=== PATIENT | male | born 1965 | race Caucasian/White ===

== ENCOUNTER 2016-08-26 20:50 | Emergency (ER) | payer OTHER ==
[2016-08-26] MEDS ORDERED: Lidocaine 1% with EPINEPHrine 1:100,000 20 ML MDV INJECT ONE (21:18)
[2016-08-26] MEDS ORDERED: Diphtheria,Pertussis(Acell),Tetanus Vaccine 0.5 ML Syringe IM ONE (21:18)
[2016-08-26] MEDS ORDERED: Ondansetron 4 MG Tab.DIS PO ONE (21:19)
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
[2016-08-26] MEDS ORDERED: Ketorolac 60 MG/2 ML SDV IM ONE (22:22)
[2016-08-26] MEDS ORDERED: Lidocaine/EPINEPHrine/Tetracaine Soln 1 ML TOP ONE (22:22)
[2016-08-26] MEDS ORDERED: Octyl 2-Cyanoacrylate 1 Tube TOP ONE (22:25)
[2016-08-27 06:06] VITALS: BP 137/81
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
== END 2016-08-26 23:08 ==
LOC: MW.ED 20:50
DX: S06.0X1A Concussion with loss of consciousness of 30 minutes or less, initial encounter (principal); S01.412A Laceration without foreign body of left cheek and temporomandibular area, initial encounter; Y04.0XXA Assault by unarmed brawl or fight, initial encounter; Z88.5 Allergy status to narcotic agent; K21.9 Gastro-esophageal reflux disease without esophagitis; F20.9 Schizophrenia, unspecified; Z79.899 Other long term (current) drug therapy; Z23 Encounter for immunization
CPT/HCPCS: 12013; 70450; 70486; 90471; 90715; 99284; A9270; J1885

== ENCOUNTER 2019-11-17 22:54 | Emergency (ER) | payer MEDICAID ==
--- NOTE | 2019-11-17 23:58 | EDM.PDOCBH ---
ED HPI GENERAL MEDICAL PROBLEM - General Chief Complaint: Behavioral/Psych Stated Complaint: SUICIDAL TENDENCIES Time Seen by Provider: 11/17/19 22:57 Source of Information: Reports: Patient, Old Records History Limitations: Reports: No Limitations - History of Present Illness INITIAL COMMENTS - FREE TEXT/NARRATIVE: 54-year-old male with past medical history of alcohol dependence presenting with complaints of feeling "weird". Patient states he has been drinking vodka all day long and was not feeling right earlier so he decided to come to the emergency department because he was not feeling like himself. He states that he is now feeling back to normal. He denies having any complaints of pain at any point. Denies taking illegal drugs, denies any desire to harm himself or others. At this point he denies any acute medical complaints and is wanting to check out of the hospital immediately. He states that his family members want to drive him to [place] to take him to a detox facility. He is requesting to be discharged as soon as he was roomed. - Related Data Allergies Allergy/AdvReac Type Severity Reaction Status Date / Time codeine Allergy Facial Verified 11/18/19 00:00 Swelling Home Meds: Home Meds . [No Known Home Meds] 11/18/19 [History] Past Medical History Gastrointestinal History: Reports: GERD Neurological History: Reports: Seizure Psychiatric History: Reports: Hallucinations, Schizophrenia Social & Family History - Family History Family Medical History: Noncontributory ED ROS GENERAL - Review of Systems Review Of Systems: See Below Constitutional: Reports: No Symptoms HEENT: Reports: No Symptoms Respiratory: Denies: Shortness of Breath Cardiovascular: Denies: Chest Pain Endocrine: Reports: No Symptoms GI/Abdominal: Denies: Abdominal Pain, Nausea, Vomiting : Denies: Flank Pain Musculoskeletal: Denies: Back Pain Skin: Reports: No Symptoms Neurological: Denies: Headache Psychiatric: Denies: Agitation, Anxiety, Depression, Homicidal Ideation, Suicidal Ideation ED EXAM, BEHAVIORAL HEALTH - Physical Exam Exam: See Below Text/Narrative:: Vital signs reviewed. Nursing notes reviewed. Constitutional: Awake, alert, non-distressed. Head: Normocephalic, atraumatic. Eyes: EOMI, conjunctiva normal, no discharge, no scleral icterus. Ears, Nose, Throat: External ears and nose normal, moist oral mucosa. Cardiovascular: 2+ radial pulse, capillary refill less than 2 seconds. RRR, no MRG Pulmonary: normal work of breathing, no accessory muscle use. CTABL Abdomen/GI: Nondistended Musculoskeletal: No deformities. Integumentary: Appropriate color for ethnicity, warm, dry, no pallor or jaundice, no rash. Neurologic: Alert, answering questions appropriately, slightly slurred speech, no facial droop, moving all extremities well. Normal gait. Appears steady on his feet. Psychiatric: Appropriate mood and affect, normal thought process. No suicidal or homicidal ideations, no hallucinations. Exam Limited By: No Limitations COURSE, BEHAVIORAL HEALTH COMP - Course Vital Signs: Last Vital Signs Temp 35.9 C L 11/18/19 00:01 Pulse 98 11/18/19 00:01 Resp 18 11/18/19 00:01 BP 159/97 H 11/18/19 00:01 Pulse Ox 95 11/18/19 00:01 Patient comes into the ER because he was "not feeling right earlier". He states he has been drinking vodka all day long and thinks he is intoxicated. At present he is feeling back to normal and has no medical complaints. He is alert and oriented to person, place, time, and event. He is able to walk without any assistance and appears steady on his feet. At the moment he has no medical complaints and does not want any further evaluation. He states that his family members are coming to pick him up to take him to a detox facility and [place]. He appears to have decisional capacity and has no complaints or suggestion of an acute medical emergency. Appears to have very mild alcohol intoxication. We will check his vital signs and let him be discharged from the emergency department to go to detox with his family members as he wishes. Departure - Departure Time of Disposition: 23:57 Disposition: Home, Self-Care 01 Condition: Good Clinical Impression: Alcohol intoxication Qualifiers: Complication of substance-induced condition: uncomplicated Qualified Code(s): F10.920 - Alcohol use, unspecified with intoxication, uncomplicated - Discharge Information *PRESCRIPTION DRUG MONITORING PROGRAM REVIEWED*: Not Applicable *COPY OF PRESCRIPTION DRUG MONITORING REPORT IN PATIENT RADHA: Not Applicable Instructions: Binge-Drinking Information, Adult Referrals: [facility] [Provider Group] - 1 Week (For alcohol cessation counseling in for follow-up of any complaints.) Forms: ED Department Discharge Additional Instructions: Thank you for choosing the [facility] emergency department in [place] for your medical needs today. It was a pleasure caring for you. You were seen in the emergency department for call intoxication. At this point we are going to let you go to detox with your family. I would like for you to follow-up with a primary doctor in the next week or so for reevaluation and for alcohol cessation counseling. Please return the emergency department immediately if your symptoms worsen or if you feel worse. The following information is given to patients seen in the emergency department who are being discharged. This information is to outline your options for follow-up care. We provide all patients seen in our emergency department with a follow-up referral. The need for follow-up, as well as the timing and circumstances, are variable depending upon the specifics of your emergency department visit. If you don't have a primary care physician on staff, we will provide you with a referral. We always advise you to contact your personal physician following an emergency department visit to inform them of the circumstance of the visit and for follow-up with them and/or the need for any referrals to a consulting specialist. The emergency department will also refer you to a specialist when appropriate. This referral assures that you have the opportunity for follow-up care with a specialist. All of these measure are taken in an effort to provide you with optimal care, which includes your follow-up. Under all circumstances we always encourage you to contact your private physician who remains a resource for coordinating your care. When calling for follow-up care, please make the office aware that this follow-up is from your recent emergency room visit. If for any reason you are refused follow-up, please contact the [facility] Emergency Department at and asked to speak to the emergency department charge nurse. If you do not have a primary care physician that is caring for you, you can con tact these clinics below to set up an appointment to establish care: [facility] - Primary Care [address] [place] [id number] [facility] [address] [place] [address] Sepsis Event Note (ED) - Focused Exam Vital Signs: Vital Signs Temp Pulse Resp BP Pulse Ox 11/18/19 00:01 35.9 C L 98 18 159/97 H 95
[2019-11-18 00:08] VITALS: BP 159/97; PULSE 98
== END 2019-11-18 00:10 | disposition home or self-care (01) ==
LOC: MW.ED 22:54
DX: F10.120 Alcohol abuse with intoxication, uncomplicated (principal); R47.81 Slurred speech; Z88.5 Allergy status to narcotic agent
CPT/HCPCS: 99282; 99283

== ENCOUNTER 2020-01-20 21:02 | Emergency (ER) | payer MEDICAID ==
[2020-01-20] MEDS ORDERED: Sodium Chloride 0.9% 1,000 ML IV ONE (21:18)
[2020-01-20] MEDS ORDERED: Sodium Chloride 0.9% 2.5 ML Syringe FLUSH PRN (21:18)
[2020-01-20] MEDS ORDERED: Pantoprazole 40 MG in Sodium Chloride 0.9% 10 ML IV ONE (21:18)
[2020-01-20] MEDS ORDERED: Ondansetron 4 MG/2 ML SDV IVPUSH ONE (21:18)
[2020-01-20] MEDS ORDERED: Sodium Chloride 0.9% 10 ML Syringe FLUSH PRN (21:18)
[2020-01-20 21:43] LABS: BLOOD UREA NITROGEN,BUN 13 mg/dL (7.0-18.0); CARBON DIOXIDE,CO2 21.7 mmol/L (21.0-32.0); CHLORIDE,CL 104 mmol/L (98-107); GLUCOSE RANDOM 105 mg/dL (74-106); LIPASE 368 U/L (73-393); POTASSIUM,K 3.6 mmol/L (3.5-5.1); SODIUM,NA 140 mmol/L (136-148)
--- NOTE | 2020-01-20 22:05 | CR ---
HISTORY: Chest pain COMPARISON: None available FINDINGS: A portable erect AP lordotic view of the chest was obtained at 21 40 hours. The lungs are clear. No focal or diffuse infiltrates are present. The heart is top-normal in size. The mediastinum is normal in appearance. The osseous structures are normal in appearance for the patient`s age. IMPRESSION: Normal portable chest single view. Dictated by Donald Mendez MD @ Jan 20 2020 10:02PM Signed by Dr. Donald Mendez @ Jan 20 2020 10:03PM
[2020-01-20] MEDS ORDERED: Iopamidol 755 Mg/ML 100 ML Bottle IVPUSH STA (22:30)
--- NOTE | 2020-01-20 22:50 | CT ---
INDICATION: Chest pain COMPARISON: None available TECHNIQUE: CT angiography of the chest was performed with the uneventful intravenous administration of 100 cc of Isovue 370 while 3 mm thick axial sections were obtained from above the apices of the lungs through the superior abdomen. Please note that all CT scans at this facility use dose modulation, iterative reconstruction, and/or weight-based dosing when appropriate to reduce radiation dose to as low as reasonably achievable. FINDINGS: The thoracic aorta is normal in caliber with no sign of dilatation or dissection. There is no sign of periaortic hematoma. The lungs are clear with no sign of infiltrate or mass. There is no sign of pulmonary embolism, with normal enhancement and branching of the pulmonary arteries. There is no sign of mediastinal or hilar mass or adenopathy. There is no sign of supraclavicular or axillary mass or adenopathy. The heart is normal in appearance for the patient`s age, as are the ascending great vessels. The visualized superior liver, spleen, pancreas, kidneys, and adrenals are normal in appearance. The osseous structures are normal in appearance for the patient`s age. IMPRESSION: Normal CT angiogram of the thoracic aorta. Normal CT of the chest with contrast. Please note that all CT scans at this facility use dose modulation, iterative reconstruction, and/or weight-based dosing when appropriate to reduce radiation dose to as low as reasonably achievable. Dictated by Donald Mendez MD @ Jan 20 2020 10:42PM Signed by Dr. Donald Mendez @ Jan 20 2020 10:49PM
--- NOTE | 2020-01-20 23:01 | CT ---
INDICATION: Abdominal pain COMPARISON: None available TECHNIQUE: CT angiography of the abdomen and pelvis was performed with the uneventful intravenous administration of Isovue 370 as part of the accompanying CTA of the chest while 1 mm thick axial sections were obtained from the lung bases through the pubic symphysis. Please note that all CT scans at this facility use dose modulation, iterative reconstruction, and/or weight-based dosing when appropriate to reduce radiation dose to as low as reasonably achievable. FINDINGS: : In the abdomen, the liver, spleen, and adrenals are normal in appearance. There is minimal inflammatory stranding around the pancreatic head and the pancreatic body at the junction with the pancreatic tail, suggesting mild pancreatitis. There is no sign of swelling of the pancreas. There is no sign of pseudocyst, phlegmon, infarction, or hemorrhage. Recommend correlation with the laboratory exam. The kidneys are normal in appearance. The gallbladder is normal in appearance. The abdominal aorta is normal in caliber with no sign of dilatation. The celiac axis, SMA, solitary bilateral renal arteries, and ABELARDO are widely patent. There is no sign of retroperitoneal mass or adenopathy. The stomach, loops of small bowel, and colon in the abdomen are normal in appearance. In the pelvis, the appendix is normal in appearance with no sign of inflammatory process. The loops of small bowel and colon in the pelvis are normal in appearance. The prostate is normal in appearance. The urinary bladder is normal in appearance. There is no sign of pelvic or inguinal mass or adenopathy. There are mild bilateral direct fat containing inguinal hernias. There is no sign of free fluid or free air in the abdomen or pelvis. The lung bases are clear. There is prominent disc degenerative disease at L1-2 with prominent sclerosis of the vertebral bodies adjacent to the disc space. There is moderate diffuse disc bulging with posterior osteophytic ridging probably results in mild spinal stenosis at this level. There is moderate L2-3 disc degenerative disease. IMPRESSION: Normal CT angiogram of the abdominal aorta. CT of the abdomen shows possible mild pancreatitis involving the pancreatic head and the pancreatic body at the junction with the pancreatic tail. Recommend correlation with the laboratory examination. CT of the pelvis shows small bilateral fat containing inguinal hernias. Prominent disc degenerative disease at L1-2 with moderate diffuse disc bulging and posterior osteophytic ridging which probably results in spinal stenosis. Please note that all CT scans at this facility use dose modulation, iterative reconstruction, and/or weight-based dosing when appropriate to reduce radiation dose to as low as reasonably achievable. Dictated by Donald Mendez MD @ Jan 20 2020 10:42PM Signed by Dr. Donald Mendez @ Jan 20 2020 11:00PM
--- NOTE | 2020-01-20 23:36 | EDM.PDOC ---
ED HPI GENERAL MEDICAL PROBLEM - General Chief Complaint: Chest Pain Stated Complaint: CHEST PAINS Time Seen by Provider: 01/20/20 21:04 - History of Present Illness INITIAL COMMENTS - FREE TEXT/NARRATIVE: HISTORY AND PHYSICAL: History of present illness: This is a 54-year-old gentleman who presents ER today complaining of midepigastric left upper and right upper quadrant abdominal discomfort since yesterday evening that has been intermittent in nature. Patient reports that the pain is not in his chest but in his mid epigastric area underneath his xiphoid process. Patient denies any fevers, shakes, chills, vomiting, dysuria, frequency, urgency. Patient reports that he has had 4-5 loose bowel movements over the last 24 hours. Patient reports he has noticed blood in his stool. Patient reports occasional shortness of breath and diaphoresis with the pain in his mid epigastric region. Patient reports that the pain is not exertional. Patient reports that the pain increases with drinking alcohol and he was drinkin g alcohol today. Patient reports that he drinks alcohol daily. Patient denies any history of pancreatitis, diabetes, liver, lung, kidney problems. Patient denies any prior abdominal or chest surgeries. Review of systems: As per history of present illness and below otherwise all systems reviewed and negative. Past medical history: As per history of present illness and as reviewed below otherwise noncontributory. Surgical history: As per history of present illness and as reviewed below otherwise noncontributory. Social history: No reported history of drug or alcohol abuse. Family history: As per history of present illness and as reviewed below otherwise noncontributory. Physical exam: HEENT: Atraumatic, normocephalic, pupils reactive, negative for conjunctival pallor or scleral icterus, mucous membranes moist, throat clear, neck supple, nontender, trachea midline. Lungs: Clear to auscultation, breath sounds equal bilaterally, chest nontender. Heart: S1S2, regular, negative for clicks, rubs, or JVD. Abd: Soft, nondistended, no rebound/guarding, no psoas or obturator signs, no tenderness at Mcberney's point, no Grullon's sign. Pt does not present with an exam that would be consistent with an acute surgical abdomen at this time. Tenderness to palpation midepigastric greater than left upper quadrant greater than right upper quadrant. Pelvis: Stable nontender. Genitourinary: Deferred. Rectal: Heme-negative brown stool Extremities: Atraumatic, negative for cords or calf pain. Neurovascular unremarkable. Neuro: Awake, alert, oriented. Cranial nerves II through XII unremarkable. Cerebellum unremarkable. Motor and sensory unremarkable throughout. Exam nonfocal. Diagnostics: EK Normal sinus rhythm heart rate of 83 with poor baseline and motion artifact Nonspecific ST-T wave abnormalities Normal axis No evidence of ST elevation [place] As interpreted by ER physician: Radha EKG #2: Normal sinus rhythm heart rate of [address]-T wave abnormalities Normal axis No evidence of ST elevation [place] As interpreted by ER physician: Radha Chest Xray: Normal cardiac silhouette No infiltrates or effusions identified. No PTX No evidence of acute bony fracture. As interpreted by ER MD: Radha CTA of abdomen chest pelvis reveals no acute pathology and aorta. Patient does have inflammation around his pancreas consistent with pancreatitis. Assessment and plan: Is a 54-year-old gentleman who presented to the ER today with abdominal pain. During my evaluation, the patient insisted that he has not had any chest pain and that the pain has been in his abdomen. When asked to point where the pain hurts the most, the patient consistently points towards his mid epigastric left upper and right upper quadrant region. Patient's ER work-up has been significant for pancreatitis identified on CT scan. Patient's lipase is top normal. Patient's EKG #1 and #2 both reveal normal sinus rhythm with nonspecific ST-T wave abnormalities. The initial EKG did reveal poor baseline. Definitive disposition and diagnosis as appropriate pending reevaluation and review of above. Chest Pain Pain Score (Numeric/FACES): 6 - Related Data Allergies Allergy/AdvReac Type Severity Reaction Status Date / Time codeine Allergy Facial Verified 11/18/19 00:00 Swelling Home Meds: Home Meds . [No Known Home Meds] 11/18/19 [History] Past Medical History Cardiovascular History: Reports: High Cholesterol Gastrointestinal History: Reports: GERD Neurological History: Reports: Seizure Psychiatric History: Reports: Hallucinations, Schizophrenia - Infectious Disease History Infectious Disease History: Reports: None Social & Family History - Family History Family Medical History: Noncontributory - Caffeine Use Caffeine Use: Reports: None ED ROS GENERAL - Review of Systems Review Of Systems: See Below ED EXAM, GENERAL - Physical Exam Exam: See Below Course - Vital Signs Last Recorded V/S: Last Vital Signs Temp 96.8 F L 01/20/20 21:08 Pulse 77 01/20/20 23:10 Resp 18 01/20/20 23:10 BP 121/76 01/20/20 23:10 Pulse Ox 94 L 01/20/20 23:10 - Orders/Labs/Meds Orders: Active Orders 24 hr Category Date Time Status EKG 12 Lead [EKG Documentation Completion] [RC] STAT Care 01/20/20 21:22 Active EKG Documentation Completion [RC] STAT Care 01/20/20 23:30 Active TROPONIN I [CHEM] Stat Lab 01/20/20 23:38 Received Sodium Chloride 0.9% [Saline Flush] Med 01/20/20 21:18 Active 10 ml FLUSH ASDIRECTED PRN Sodium Chloride 0.9% [Saline Flush] Med 01/20/20 21:18 Active 2.5 ml FLUSH ASDIRECTED PRN Saline Lock Insert [OM.PC] Stat Oth 01/20/20 21:19 Ordered Medication Orders Sodium Chloride (Saline Flush) 10 ml FLUSH ASDIRECTED PRN PRN Reason: Keep Vein Open Sodium Chloride (Saline Flush) 2.5 ml FLUSH ASDIRECTED PRN PRN Reason: Keep Vein Open Labs: Laboratory Tests 01/20/20 01/20/20 01/20/20 Range/Units 21:08 21:08 21:08 WBC 12.73 H (4.0-11.0) K/uL RBC 5.17 (4.50-5.90) M/uL Hgb 17.3 H (13.0-17.0) g/dL Hct 48.4 (38.0-50.0) % MCV 93.6 (80.0-98.0) fL MCH 33.5 H (27.0-32.0) pg MCHC 35.7 (31.0-37.0) g/dL RDW Std Deviation 47.2 (28.0-62.0) fl RDW Coeff of Dolly 14 (11.0-15.0) % Plt Count 273 (150-400) K/uL MPV 9.00 (7.40-12.00) fL Neut % (Auto) 72.1 (48.0-80.0) % Lymph % (Auto) 21.3 (16.0-40.0) % [place] % (Auto) 4.9 (0.0-15.0) % Eos % (Auto) 1.5 (0.0-7.0) % Baso % (Auto) 0.2 (0.0-1.5) % Neut # (Auto) 9.2 H (1.4-5.7) K/uL Lymph # (Auto) 2.7 H (0.6-2.4) K/uL [place] # (Auto) 0.6 (0.0-0.8) K/uL Eos # (Auto) 0.2 (0.0-0.7) K/uL Baso # (Auto) 0.0 (0.0-0.1) K/uL Nucleated RBC % 0.0 /100WBC Nucleated RBCs # 0 K/uL INR 1.04 D-Dimer, Quantitative 0.71 H (0.0-0.50) mg/L FEU Sodium 140 (136-148) mmol/L Potassium 3.6 (3.5-5.1) mmol/L Chloride 104 (98-107) mmol/L Carbon Dioxide 21.7 (21.0-32.0) mmol/L BUN 13 (7.0-18.0) mg/dL Creatinine 0.9 (0.8-1.3) mg/dL Est Cr Clr Drug Dosing TNP Estimated GFR (MDRD) > 60.0 ml/min Glucose 105 (74-106) mg/dL Calcium 8.5 (8.5-10.1) mg/dL Total Bilirubin 0.4 (0.2-1.0) mg/dL AST 48 H (15-37) IU/L ALT 66 H (14-63) IU/L Alkaline Phosphatase 83 (46-116) U/L Troponin I < 0.050 (0.000-0.056) ng/mL B-Natriuretic Peptide (<100) PG/ML Total Protein 7.1 (6.4-8.2) g/dL Albumin 3.8 (3.4-5.0) g/dL Globulin 3.3 (2.6-4.0) g/dL Albumin/Globulin Ratio 1.2 (0.9-1.6) Lipase 368 (73-393) U/L Urine Color Urine Appearance Urine pH (5.0-8.0) Ur Specific [place] (1.001-1.035) Urine Protein (NEGATIVE) mg/dL Urine Glucose (UA) (NEGATIVE) mg/dL Urine Ketones (NEGATIVE) mg/dL Urine Occult Blood (NEGATIVE) Urine Nitrite (NEGATIVE) Urine Bilirubin (NEGATIVE) Urine Urobilinogen (<2.0) EU/dL Ur Leukocyte Esterase (NEGATIVE) Urine RBC (0-2/HPF) Urine WBC (0-5/HPF) Ur Epithelial Cells (NONE-FEW) Urine Bacteria (NEGATIVE) Urine Mucus (NONE-MOD) Ethyl Alcohol 221 mg/dL COVID-19 (EVELYN) (NEGATIVE) 01/20/20 01/20/20 01/20/20 Range/Units 21:08 21:25 22:10 WBC (4.0-11.0) K/uL RBC (4.50-5.90) M/uL Hgb (13.0-17.0) g/dL Hct (38.0-50.0) % MCV (80.0-98.0) fL MCH (27.0-32.0) pg MCHC (31.0-37.0) g/dL RDW Std Deviation (28.0-62.0) fl RDW Coeff of Dolly (11.0-15.0) % Plt Count (150-400) K/uL MPV (7.40-12.00) fL Neut % (Auto) (48.0-80.0) % Lymph % (Auto) (16.0-40.0) % [place] % (Auto) (0.0-15.0) % Eos % (Auto) (0.0-7.0) % Baso % (Auto) (0.0-1.5) % Neut # (Auto) (1.4-5.7) K/uL Lymph # (Auto) (0.6-2.4) K/uL [place] # (Auto) (0.0-0.8) K/uL Eos # (Auto) (0.0-0.7) K/uL Baso # (Auto) (0.0-0.1) K/uL Nucleated RBC % /100WBC Nucleated RBCs # K/uL INR D-Dimer, Quantitative (0.0-0.50) mg/L FEU Sodium (136-148) mmol/L Potassium (3.5-5.1) mmol/L Chloride (98-107) mmol/L Carbon Dioxide (21.0-32.0) mmol/L BUN (7.0-18.0) mg/dL Creatinine (0.8-1.3) mg/dL Est Cr Clr Drug Dosing Estimated GFR (MDRD) ml/min Glucose (74-106) mg/dL Calcium (8.5-10.1) mg/dL Total Bilirubin (0.2-1.0) mg/dL AST (15-37) IU/L ALT (14-63) IU/L Alkaline Phosphatase (46-116) U/L Troponin I (0.000-0.056) ng/mL B-Natriuretic Peptide 8 (<100) PG/ML Total Protein (6.4-8.2) g/dL Albumin (3.4-5.0) g/dL Globulin (2.6-4.0) g/dL Albumin/Globulin Ratio (0.9-1.6) Lipase (73-393) U/L Urine Color YELLOW Urine Appearance CLEAR Urine pH 6.0 (5.0-8.0) Ur Specific [place] 1.020 (1.001-1.035) Urine Protein NEGATIVE (NEGATIVE) mg/dL Urine Glucose (UA) NEGATIVE (NEGATIVE) mg/dL Urine Ketones NEGATIVE (NEGATIVE) mg/dL Urine Occult Blood TRACE-INTACT H (NEGATIVE) Urine Nitrite NEGATIVE (NEGATIVE) Urine Bilirubin NEGATIVE (NEGATIVE) Urine Urobilinogen 0.2 (<2.0) EU/dL Ur Leukocyte Esterase NEGATIVE (NEGATIVE) Urine RBC 0-1 (0-2/HPF) Urine WBC 0-1 (0-5/HPF) Ur Epithelial Cells RARE (NONE-FEW) Urine Bacteria FEW (NEGATIVE) Urine Mucus LIGHT (NONE-MOD) Ethyl Alcohol mg/dL COVID-19 (EVELYN) NEGATIVE (NEGATIVE) Meds: Medications Generic Name Dose Route Start Last Admin Trade Name Freq PRN Reason Stop Dose Admin Sodium Chloride 10 ml 01/20/20 21:18 Saline Flush FLUSH ASDIRECTED PRN Keep Vein Open Sodium Chloride 2.5 ml 01/20/20 21:18 Saline Flush FLUSH ASDIRECTED PRN Keep Vein Open Discontinued Medications Generic Name Dose Route Start Last Admin Trade Name Juan F PRN Reason Stop Dose Admin Sodium Chloride 1,000 mls @ 999 mls/hr 01/20/20 21:18 01/20/20 21:33 Normal Saline IV 01/20/20 22:18 999 mls/hr .Bolus ONE Administration Pantoprazole Sodium 40 mg/ 10 mls @ 300 mls/hr 01/20/20 21:18 01/20/20 21:32 Sodium Chloride IV 01/20/20 21:19 300 mls/hr NOW ONE Administration Iopamidol 100 ml 01/20/20 22:30 01/20/20 22:31 Isovue-370 (76%) IVPUSH 01/20/20 22:31 100 ml ONETIME STA Administration Ondansetron HCl 4 mg 01/20/20 21:18 01/20/20 21:33 Zofran IVPUSH 01/20/20 21:19 4 mg ONETIME ONE Administration Departure - Departure Time of Disposition: 23:59 Disposition: Home, Self-Care 01 Condition: Good Clinical Impression: Pancreatitis, Abdominal pain, Alcohol use disorder, Alcohol-induced pancreatitis - Discharge Information Instructions: Pancreatitis Eating Plan, Acute Pancreatitis, Nonspecific Chest Pain, Adult, [id number] Referrals: Stiven Ogden MD [Primary Care Provider] - Forms: ED Department Discharge Additional Instructions: Your symptoms today appear to be secondary to inflammation of your pancreas that was identified on the CAT scan. This is a result of too much alcohol use. You must stop drinking so much alcohol. Please make an appointment to see your doctor so that you can get enrolled in a alcohol program/Alcoholics Anonymous. Please avoid any fatty or greasy food over the next 2 to 3 days. Please maintain a liquid diet for the first 24 to 48 hours and you can advance slowly if the pain has subsided. Your work-up for your heart has been normal here in the ED. Your troponin and EKG did not show evidence of heart attack. Your CT scan today did not reveal any evidence of dissection or aneurysm of your aorta in your chest or abdomen Please continue to take your Prilosec at home. Please make an appointment to see your family doctor to be evaluated for the blood that you identified in your stool. Your stool today was brown and did not have any blood identified in it. The following information is given to patients seen in the emergency department who are being discharged to home. This information is to outline your options for follow-up care. We provide all patients seen in our emergency department with a follow-up referral. The need for follow-up, as well as the timing and circumstances, are variable depending upon the specifics of your emergency department visit. If you don't have a primary care physician on staff, we will provide you with a referral. We always advise you to contact your personal physician following an emergency department visit to inform them of the circumstance of the visit and for follow-up with them and/or the need for any referrals to a consulting specialist. The emergency department will also refer you to a specialist when appropriate. This referral assures that you have the opportunity for follow-up care with a specialist. All of these measure are taken in an effort to provide you with optimal care, which includes your follow-up. Under all circumstances we always encourage you to contact your private physician who remains a resource for coordinating your care. When calling for follow-up care, please make the office aware that this follow-up is from your recent emergency room visit. If for any reason you are refused follow-up, please contact the [facility] Emergency Department at and asked to speak to the emergency department charge nurse. Sepsis Event Note (ED) - Evaluation Sepsis Screening Result: No Definite Risk - Focused Exam Vital Signs: Vital Signs Temp Pulse Resp BP Pulse Ox 01/20/20 23:10 77 18 121/76 94 L 01/20/20 22:45 79 141/94 H 97 01/20/20 22:28 72 18 122/84 65 L 01/20/20 22:13 78 129/88 96 01/20/20 21:48 83 18 133/92 H 95 01/20/20 21:46 77 133/92 H 94 L 01/20/20 21:11 83 150/107 H 95 01/20/20 21:08 96.8 F L 83 22 H 154/104 H 96 - My Orders Last 24 Hours: My Active Orders 01/20/20 21:18 Sodium Chloride 0.9% [Saline Flush] 10 ml FLUSH ASDIRECTED PRN Sodium Chloride 0.9% [Saline Flush] 2.5 ml FLUSH ASDIRECTED PRN 01/20/20 21:19 Saline Lock Insert [OM.PC] Stat 01/20/20 21:22 EKG 12 Lead [EKG Documentation Completion] [RC] STAT 01/20/20 23:30 EKG Documentation Completion [RC] STAT 01/20/20 23:38 TROPONIN I [CHEM] Stat - Assessment/Plan Last 24 Hours: My Active Orders 01/20/20 21:18 Sodium Chloride 0.9% [Saline Flush] 10 ml FLUSH ASDIRECTED PRN Sodium Chloride 0.9% [Saline Flush] 2.5 ml FLUSH ASDIRECTED PRN 01/20/20 21:19 Saline Lock Insert [OM.PC] Stat 01/20/20 21:22 EKG 12 Lead [EKG Documentation Completion] [RC] STAT 01/20/20 23:30 EKG Documentation Completion [RC] STAT 01/20/20 23:38 TROPONIN I [CHEM] Stat
[2020-01-21 00:53] VITALS: BP 125/84; PULSE 76
== END 2020-01-21 00:31 | disposition home or self-care (01) ==
LOC: MW.ED 21:02
DX: K85.20 Alcohol induced acute pancreatitis without necrosis or infection (principal); F10.99 Alcohol use, unspecified with unspecified alcohol-induced disorder; Y90.7 Blood alcohol level of 200-239 mg/100 ml; Z20.828 Contact with and (suspected) exposure to other viral communicable diseases; Z88.5 Allergy status to narcotic agent
CPT/HCPCS: 36415; 71045; 71275; 74174; 80053; 80307; 81001; 83690; 83880; 84484; 85025; 85379; 85610; 87635; 93005; 96361; 96374; 96375; 99284; C9113; J2405; J7030; J7050; Q9967; U0002

== ENCOUNTER 2020-01-23 21:32 | Emergency (ER) | payer MEDICAID ==
[2020-01-23] MEDS ORDERED: Sodium Chloride 0.9% 2.5 ML Syringe FLUSH PRN (21:34)
[2020-01-23] MEDS ORDERED: Sodium Chloride 0.9% 10 ML Syringe FLUSH PRN (21:34)
[2020-01-23 21:54] VITALS: BP 114/77; PULSE 88
--- NOTE | 2020-01-23 21:56 | CR ---
Chest: Portable view of the chest was obtained. Comparison: Prior chest x-ray of 01/20/20. Heart size and mediastinum are normal. Lungs are clear. No acute parenchymal change is seen. No granulomatous change is visible. Bony structures are grossly intact. Impression: 1. Nothing acute is appreciated on portable chest x-ray. Diagnostic code #1 This report was dictated in MDT
--- NOTE | 2020-01-23 22:09 | EDM.PDOC ---
ED HPI GENERAL MEDICAL PROBLEM - General Chief Complaint: Behavioral/Psych Stated Complaint: ALCOHOL/SUICIDIAL IDEATION Time Seen by Provider: 01/23/20 21:33 - History of Present Illness INITIAL COMMENTS - FREE TEXT/NARRATIVE: Patient is brought mass with police here because he was saying he was suicidal. Patient admits he drank a lot. He drinks much he is afraid he might . He says he drinks a lot every day. He has been through rehab in the past and after rehab at a job. Lately he lost his job because of drinking and now is depressed again. He has been ties in his early life because of a murder suicide of his parents. At this point he says he wants to live but he wants to go into a rehab facility. He has had a good experience at [facility]. History of present illness: [] Review of systems: As per history of present illness and below otherwise all systems reviewed and negative. Past medical history: As per history of present illness and as reviewed below otherwise noncontributory. Surgical history: As per history of present illness and as reviewed below otherwise noncontributory. Social history: No reported history of drug or alcohol abuse. Family history: As per history of present illness and as reviewed below otherwise noncontributory. Physical exam: Constitutional - well developed, well-nourished and in no acute distress HEENT - normocephalic, no evidence of trauma - external nose and mouth normal - no mass in neck and no JVD - mucosae moist EYES - full EOM, PERRL, no icterus - no evidence of inflammation, injection, or drainage Respiratory - no respiratory distress, equal bilateral expansion, lungs clear to auscultation and no abnormal lung sounds Cardiovascular - Regular Rhythm with S1 and S2 appreciated and no murmur, gallop or rub. GI - abdomen soft without distension or organomegaly - normal bowel sounds - no guard or rebound Musculoskeletal no gross deformity of long bones or joints - no tenderness, swelling or edema Neurologic -slightly slurred and admittedly he has been drinking a lot. Alert and oriented times four - CN II-XII grossly intact - motor sensory and coordination symmetrically normal Psychiatric - appropriate mood and affect with normal thought content Hematologic - No petechiae or purpura - mucosa appropriate color and sclera not pale - normal nail bed color and refill Integument - no rash or evidence of trauma - normal turgor Diagnostics: [] Therapeutics: [] Impression: [] Plan: [] Definitive disposition and diagnosis as appropriate pending reevaluation and review of above. - Related Data Allergies Allergy/AdvReac Type Severity Reaction Status Date / Time codeine Allergy Facial Verified 01/23/20 21:55 Swelling Home Meds: Home Meds . [No Known Home Meds] 11/18/19 [History] Past Medical History Cardiovascular History: Reports: High Cholesterol Other Respiratory History: Patient thinks he may have COPD but is not dx with it; States he wheezes on exhale most of the time Gastrointestinal History: Reports: GERD Neurological History: Reports: Seizure Psychiatric History: Reports: Hallucinations, Schizophrenia - Infectious Disease History Infectious Disease History: Reports: None Social & Family History - Family History Family Medical History: Noncontributory - Caffeine Use Caffeine Use: Reports: None ED ROS GENERAL - Review of Systems Review Of Systems: Comprehensive ROS is negative, except as noted in HPI. ED EXAM, GENERAL - Physical Exam Exam: See Below Free Text/Narrative:: My physical exam is in my HPI EKG INTERPRETATION EKG Date: 01/23/20 Rhythm: NSR Rate (Beats/Min): 77 P-Wave: Present Comparison: No Change (Compared to 01/20/2020) EKG Interpretation Comments: Unremarkable EKG with no obvious ischemia Course - Vital Signs Text/Narrative:: My review of the chest x-ray is that it is unremarkable with no acute pathology 10:54 PM the patient has an alcohol level that is 330. He says that he feels more sober than when he came in. He says [id number] that he does not want to kill himself and that he will voluntarily get someone to take him to [facility] when they have a bed in [place]. He has a friend named Cassie Michael who is sober and will come and get him and help him make these arrangements. 12:32 AM perhaps because of his chronic alcoholism this patient while technically legally not sober appears quite sober and talks very coherently. He says he is not suicidal and wants to go to [facility]. He does not want me to send him to the closest facility because he had such a good relationship with his counselors at [facility] and thinks he will do well if he goes there. He definitely wants to live him wants to be seen at [facility]. I talked to ezio Rodriguez phone #[phone]. She is 1 of the people that called EMS earlier. She is talking to the staff at [facility] where they have his records. The staff at [facility] want her to bring him to them. The patient wants to go to them. She is willing to take him to them. The patient promised that he would not hurt himself and he would cooperate with his friend Cassie. The patient will be released in satisfactory condition. Last Recorded V/S: Last Vital Signs Temp 98.0 F 01/23/20 21:49 Pulse 88 01/23/20 21:49 Resp 16 01/23/20 21:49 BP 114/77 01/23/20 21:49 Pulse Ox 95 01/23/20 21:49 - Orders/Labs/Meds Orders: Active Orders 24 hr Category Date Time Status EKG Documentation Completion [RC] AM Care 01/23/20 21:34 Active Sodium Chloride 0.9% [Saline Flush] Med 01/23/20 21:34 Active 10 ml FLUSH ASDIRECTED PRN Sodium Chloride 0.9% [Saline Flush] Med 01/23/20 21:34 Active 2.5 ml FLUSH ASDIRECTED PRN Saline Lock Insert [OM.PC] Stat Oth 01/23/20 21:34 Ordered Medication Orders Sodium Chloride (Saline Flush) 10 ml FLUSH ASDIRECTED PRN PRN Reason: Keep Vein Open Sodium Chloride (Saline Flush) 2.5 ml FLUSH ASDIRECTED PRN PRN Reason: Keep Vein Open Labs: Laboratory Tests 01/23/20 01/23/20 01/23/20 Range/Units 21:55 21:55 22:50 WBC 8.10 (4.0-11.0) K/uL RBC 4.78 (4.50-5.90) M/uL Hgb 16.1 (13.0-17.0) g/dL Hct 44.6 (38.0-50.0) % MCV 93.3 (80.0-98.0) fL MCH 33.7 H (27.0-32.0) pg MCHC 36.1 (31.0-37.0) g/dL RDW Std Deviation 47.1 (28.0-62.0) fl RDW Coeff of Dolly 14 (11.0-15.0) % Plt Count 249 (150-400) K/uL MPV 9.20 (7.40-12.00) fL Neut % (Auto) 55.4 (48.0-80.0) % Lymph % (Auto) 33.0 (16.0-40.0) % [place] % (Auto) 8.5 (0.0-15.0) % Eos % (Auto) 2.6 (0.0-7.0) % Baso % (Auto) 0.5 (0.0-1.5) % Neut # (Auto) 4.5 (1.4-5.7) K/uL Lymph # (Auto) 2.7 H (0.6-2.4) K/uL [place] # (Auto) 0.7 (0.0-0.8) K/uL Eos # (Auto) 0.2 (0.0-0.7) K/uL Baso # (Auto) 0.0 (0.0-0.1) K/uL Nucleated RBC % 0.0 /100WBC Nucleated RBCs # 0 K/uL Sodium 143 (136-148) mmol/L Potassium 3.5 (3.5-5.1) mmol/L Chloride 108 H (98-107) mmol/L Carbon Dioxide 20.7 L (21.0-32.0) mmol/L BUN 12 (7.0-18.0) mg/dL Creatinine 0.7 L (0.8-1.3) mg/dL Est Cr Clr Drug Dosing TNP Estimated GFR (MDRD) > 60.0 ml/min Glucose 90 (74-106) mg/dL Calcium 8.6 (8.5-10.1) mg/dL Total Bilirubin 0.3 (0.2-1.0) mg/dL AST 31 (15-37) IU/L ALT 45 (14-63) IU/L Alkaline Phosphatase 98 (46-116) U/L Troponin I < 0.050 (0.000-0.056) ng/mL Total Protein 7.2 (6.4-8.2) g/dL Albumin 3.7 (3.4-5.0) g/dL Globulin 3.5 (2.6-4.0) g/dL Albumin/Globulin Ratio 1.1 (0.9-1.6) Urine Color YELLOW Urine Appearance CLEAR Urine pH 5.0 (5.0-8.0) Ur Specific [place] 1.015 (1.001-1.035) Urine Protein NEGATIVE (NEGATIVE) mg/dL Urine Glucose (UA) NEGATIVE (NEGATIVE) mg/dL Urine Ketones NEGATIVE (NEGATIVE) mg/dL Urine Occult Blood TRACE-INTACT H (NEGATIVE) Urine Nitrite NEGATIVE (NEGATIVE) Urine Bilirubin NEGATIVE (NEGATIVE) Urine Urobilinogen 0.2 (<2.0) EU/dL Ur Leukocyte Esterase NEGATIVE (NEGATIVE) Urine RBC 0-2 (0-2/HPF) Urine WBC 0-1 (0-5/HPF) Ur Epithelial Cells RARE (NONE-FEW) Urine Bacteria RARE (NEGATIVE) Urine Opiates Screen (NEGATIVE) Ur Oxycodone Screen (NEGATIVE) Urine Methadone Screen (NEGATIVE) Ur Barbiturates Screen (NEGATIVE) Ur Phencyclidine Scrn (NEGATIVE) Ur Amphetamine Screen (NEGATIVE) U Methamphetamines Scrn (NEGATIVE) U Benzodiazepines Scrn (NEGATIVE) U Cocaine Metab Screen (NEGATIVE) U Marijuana (THC) Screen (NEGATIVE) Ethyl Alcohol 330 mg/dL 01/23/20 Range/Units 22:50 WBC (4.0-11.0) K/uL RBC (4.50-5.90) M/uL Hgb (13.0-17.0) g/dL Hct (38.0-50.0) % MCV (80.0-98.0) fL MCH (27.0-32.0) pg MCHC (31.0-37.0) g/dL RDW Std Deviation (28.0-62.0) fl RDW Coeff of Dolly (11.0-15.0) % Plt Count (150-400) K/uL MPV (7.40-12.00) fL Neut % (Auto) (48.0-80.0) % Lymph % (Auto) (16.0-40.0) % [place] % (Auto) (0.0-15.0) % Eos % (Auto) (0.0-7.0) % Baso % (Auto) (0.0-1.5) % Neut # (Auto) (1.4-5.7) K/uL Lymph # (Auto) (0.6-2.4) K/uL [place] # (Auto) (0.0-0.8) K/uL Eos # (Auto) (0.0-0.7) K/uL Baso # (Auto) (0.0-0.1) K/uL Nucleated RBC % /100WBC Nucleated RBCs # K/uL Sodium (136-148) mmol/L Potassium (3.5-5.1) mmol/L Chloride (98-107) mmol/L Carbon Dioxide (21.0-32.0) mmol/L BUN (7.0-18.0) mg/dL Creatinine (0.8-1.3) mg/dL Est Cr Clr Drug Dosing Estimated GFR (MDRD) ml/min Glucose (74-106) mg/dL Calcium (8.5-10.1) mg/dL Total Bilirubin (0.2-1.0) mg/dL AST (15-37) IU/L ALT (14-63) IU/L Alkaline Phosphatase (46-116) U/L Troponin I (0.000-0.056) ng/mL Total Protein (6.4-8.2) g/dL Albumin (3.4-5.0) g/dL Globulin (2.6-4.0) g/dL Albumin/Globulin Ratio (0.9-1.6) Urine Color Urine Appearance Urine pH (5.0-8.0) Ur Specific [place] (1.001-1.035) Urine Protein (NEGATIVE) mg/dL Urine Glucose (UA) (NEGATIVE) mg/dL Urine Ketones (NEGATIVE) mg/dL Urine Occult Blood (NEGATIVE) Urine Nitrite (NEGATIVE) Urine Bilirubin (NEGATIVE) Urine Urobilinogen (<2.0) EU/dL Ur Leukocyte Esterase (NEGATIVE) Urine RBC (0-2/HPF) Urine WBC (0-5/HPF) Ur Epithelial Cells (NONE-FEW) Urine Bacteria (NEGATIVE) Urine Opiates Screen NEGATIVE (NEGATIVE) Ur Oxycodone Screen NEGATIVE (NEGATIVE) Urine Methadone Screen NEGATIVE (NEGATIVE) Ur Barbiturates Screen NEGATIVE (NEGATIVE) Ur Phencyclidine Scrn NEGATIVE (NEGATIVE) Ur Amphetamine Screen NEGATIVE (NEGATIVE) U Methamphetamines Scrn NEGATIVE (NEGATIVE) U Benzodiazepines Scrn POSITIVE (NEGATIVE) U Cocaine Metab Screen NEGATIVE (NEGATIVE) U Marijuana (THC) Screen NEGATIVE (NEGATIVE) Ethyl Alcohol mg/dL Meds: Medications Generic Name Dose Route Start Last Admin Trade Name Freq PRN Reason Stop Dose Admin Sodium Chloride 10 ml 01/23/20 21:34 Saline Flush FLUSH ASDIRECTED PRN Keep Vein Open Sodium Chloride 2.5 ml 01/23/20 21:34 Saline Flush FLUSH ASDIRECTED PRN Keep Vein Open Departure - Departure Time of Disposition: 00:33 Disposition: Home, Self-Care 01 Condition: Good Clinical Impression: Depressive disorder, Alcohol abuse - Discharge Information Instructions: Alcohol Use Disorder Referrals: PCP,None [Primary Care Provider] - Forms: ED Department Discharge Additional Instructions: Releasing you to 1 of your friends to whom you had spoken and who had been involved in calling EMS. She is spoken to Wilton Samayoa and they want to see you. She is willing to take you there. [facility] - Primary Care [address] [place] [address] [place] [address] [facility] Address: [address] [place] [address] Hours: walk in 9 AM M-F The following information is given to patients seen in the emergency department who are being discharged to home. This information is to outline your options for follow-up care. We provide all patients seen in our emergency department with a follow-up referral. The need for follow-up, as well as the timing and circumstances, are variable depending upon the specifics of your emergency department visit. If you don't have a primary care physician on staff, we will provide you with a referral. We always advise you to contact your personal physician following an emergency department visit to inform them of the circumstance of the visit and for follow-up with them and/or the need for any referrals to a consulting specialist. The emergency department will also refer you to a specialist when appropriate. This referral assures that you have the opportunity for follow-up care with a specialist. All of these measure are taken in an effort to provide you with optimal care, which includes your follow-up. Under all circumstances we always encourage you to contact your private physician who remains a resource for coordinating your care. When calling for follow-up care, please make the office aware that this follow-up is from your recent emergency room visit. If for any reason you are refused follow-up, please contact the [facility] Emergency Department at and asked to speak to the emergency department charge nurse. Sepsis Event Note (ED) - Evaluation Sepsis Screening Result: No Definite Risk - Focused Exam Vital Signs: Vital Signs Temp Pulse Resp BP Pulse Ox 01/23/20 21:49 98.0 F 88 16 114/77 95 - My Orders Last 24 Hours: My Active Orders 01/23/20 21:34 EKG Documentation Completion [RC] AM Sodium Chloride 0.9% [Saline Flush] 10 ml FLUSH ASDIRECTED PRN Sodium Chloride 0.9% [Saline Flush] 2.5 ml FLUSH ASDIRECTED PRN Saline Lock Insert [OM.PC] Stat - Assessment/Plan Last 24 Hours: My Active Orders 01/23/20 21:34 EKG Documentation Completion [RC] AM Sodium Chloride 0.9% [Saline Flush] 10 ml FLUSH ASDIRECTED PRN Sodium Chloride 0.9% [Saline Flush] 2.5 ml FLUSH ASDIRECTED PRN Saline Lock Insert [OM.PC] Stat
[2020-01-23 22:31] LABS: BLOOD UREA NITROGEN,BUN 12 mg/dL (7.0-18.0); CARBON DIOXIDE,CO2 20.7 mmol/L (21.0-32.0); CHLORIDE,CL 108 mmol/L (98-107); GLUCOSE RANDOM 90 mg/dL (74-106); POTASSIUM,K 3.5 mmol/L (3.5-5.1); SODIUM,NA 143 mmol/L (136-148)
== END 2020-01-24 01:05 | disposition home or self-care (01) ==
LOC: MW.ED 21:32
DX: F32.9 Major depressive disorder, single episode, unspecified (principal); F10.20 Alcohol dependence, uncomplicated; Y90.8 Blood alcohol level of 240 mg/100 ml or more; Z88.5 Allergy status to narcotic agent
CPT/HCPCS: 36415; 71045; 71045-26; 80053; 80305-QW; 80307; 81001; 84484; 85025; 93005; 99283; 99284-25

== ENCOUNTER 2020-04-06 20:51 | Emergency (ER) | payer MEDICAID ==
[2020-04-06] MEDS ORDERED: Sodium Chloride 0.9% 10 ML Syringe FLUSH PRN (21:03)
[2020-04-06] MEDS ORDERED: Lactated Ringers 1,000 ML IV ONE (21:03)
[2020-04-06] MEDS ORDERED: Sodium Chloride 0.9% 2.5 ML Syringe FLUSH PRN (21:03)
[2020-04-06] MEDS ORDERED: MVI, Adult with Vitamin K 10 ML, Thiamine 100 MG, Folic Acid 1 MG, Magnesium Sulfate 2 ... IV ONE ×5 (21:03)
--- NOTE | 2020-04-06 21:10 | EDM.PDOC ---
ED HPI GENERAL MEDICAL PROBLEM - General Chief Complaint: Drug or Alcohol Abuse Stated Complaint: EMS ARRIVAL Time Seen by Provider: 04/06/20 20:54 Source of Information: Reports: Patient, EMS History Limitations: Reports: Altered Mental Status, Intoxication - History of Present Illness INITIAL COMMENTS - FREE TEXT/NARRATIVE: 54-year-old male with history of alcohol intoxication was called by family members for altered mental status. He recently was out of detox. On scene BG = 75. He does admit to hitting his head yesterday in the car mirror and landed on the right side of his body. History and ROS limited secondary to altered mental status. Past medical history: No additional pertinent history Past Surgical history: No additional pertinent history Social history: No additional pertinent history Family history: No additional pertinent history PHYSICAL EXAM General: AOx3, GCS = 15, No distress HEENT: dry mucous membrane, NC/AT Neck: supple, no meningismus, no Kernig or Brudzinski Cardiac: S1S2 RRR Respiratory: CTAB, no crackles or rales, no wheezing Abdomen: Soft, nontender, no rebound or guarding, nondistended, no pulsatile mass. 5x7cm area of tender ecchymosis to right posterior flank Back: nontender Musculoskeletal: NVI distally, no deformity Neuro: No focal deficits - Related Data Allergies Allergy/AdvReac Type Severity Reaction Status Date / Time codeine Allergy Facial Verified 04/06/20 21:02 Swelling Home Meds: Home Meds . [No Known Home Meds] 11/18/19 [History] Past Medical History Cardiovascular History: Reports: High Cholesterol Respiratory History: Reports: Other (See Below) Other Respiratory History: Patient thinks he may have COPD but is not dx with it; States he wheezes on exhale most of the time Gastrointestinal History: Reports: GERD Neurological History: Reports: Seizure Psychiatric History: Reports: Addiction, Hallucinations, Schizophrenia - Infectious Disease History Infectious Disease History: Reports: None Social & Family History - Family History Family Medical History: No Pertinent Family History - Caffeine Use Caffeine Use: Reports: None - Recreational Drug Use Recreational Drug Use: No ED ROS GENERAL - Review of Systems Review Of Systems: Unable To Obtain Reason Not Obtained: Alcohol intoxication - Physical Exam Exam: See Below (see dictation) #1 Interpretation EKG Interpretation Comments: Heart rate = 73 bpm, normal sinus rhythm, normal QRS interval, no STEMI. EKG and rhythm strip interpreted by me at 2055 Course - Vital Signs Last Recorded V/S: Last Vital Signs Temp 98.9 F 04/06/20 20:55 Pulse 102 H 04/06/20 21:47 Resp 18 04/06/20 21:47 BP 147/110 H 04/06/20 21:47 Pulse Ox 95 04/06/20 21:47 - Orders/Labs/Meds Orders: Active Orders 24 hr Category Date Time Status Cardiac Monitoring [RC] . DIRECTED Care 04/06/20 21:03 Active EKG Documentation Completion [RC] STAT Care 04/06/20 21:04 Active Pulse Oximetry [RC] ASDIRECTED Care 04/06/20 21:03 Active MVI, Adult with Vitamin K [Infuvite Adult] 10 ml Med 04/06/20 21:03 Active Thiamine [Vitamin B-1] 100 mg Folic Acid 1 mg Magnesium Sulfate [Magnesium Sulfate 50%] 2 gm Sodium Chloride 0.9% [Normal Saline] 1,000 ml IV ONETIME Sodium Chloride 0.9% [Saline Flush] Med 04/06/20 21:03 Active 10 ml FLUSH ASDIRECTED PRN Sodium Chloride 0.9% [Saline Flush] Med 04/06/20 21:03 Active 2.5 ml FLUSH ASDIRECTED PRN Saline Lock Insert [OM.PC] Stat Oth 04/06/20 21:04 Ordered Medication Orders Multivitamins/Minerals 10 ml/Thiamine HCl 100 mg/ Folic Acid 1 mg/ Magnesium Sulfate 2 gm/ Sodium Chloride 1,015.2 mls @ 500 mls/hr IV ONETIME ONE Stop: 04/06/20 23:04 Last Admin: 04/06/20 22:08 Dose: 500 mls/hr Documented by: EZEQUIEL Sodium Chloride (Saline Flush) 10 ml FLUSH ASDIRECTED PRN PRN Reason: Keep Vein Open Sodium Chloride (Saline Flush) 2.5 ml FLUSH ASDIRECTED PRN PRN Reason: Keep Vein Open Labs: Laboratory Tests 04/06/20 04/06/20 04/06/20 Range/Units 20:50 20:50 20:50 WBC 9.01 (4.0-11.0) K/uL RBC 5.28 (4.50-5.90) M/uL Hgb 17.3 H (13.0-17.0) g/dL Hct 48.8 (38.0-50.0) % MCV 92.4 (80.0-98.0) fL MCH 32.8 H (27.0-32.0) pg MCHC 35.5 (31.0-37.0) g/dL RDW Std Deviation 45.6 (28.0-62.0) fl RDW Coeff of Dolly 14 (11.0-15.0) % Plt Count 355 (150-400) K/uL MPV 9.20 (7.40-12.00) fL Neut % (Auto) 44.7 L (48.0-80.0) % Lymph % (Auto) 44.4 H (16.0-40.0) % [place] % (Auto) 8.5 (0.0-15.0) % Eos % (Auto) 1.8 (0.0-7.0) % Baso % (Auto) 0.6 (0.0-1.5) % Neut # (Auto) 4.0 (1.4-5.7) K/uL Lymph # (Auto) 4.0 H (0.6-2.4) K/uL [place] # (Auto) 0.8 (0.0-0.8) K/uL Eos # (Auto) 0.2 (0.0-0.7) K/uL Baso # (Auto) 0.1 (0.0-0.1) K/uL Nucleated RBC % 0.0 /100WBC Nucleated RBCs # 0 K/uL INR 0.98 Sodium 144 (136-148) mmol/L Potassium 3.8 (3.5-5.1) mmol/L Chloride 106 (98-107) mmol/L Carbon Dioxide 26.4 (21.0-32.0) mmol/L BUN 11 (7.0-18.0) mg/dL Creatinine 1.0 (0.8-1.3) mg/dL Est Cr Clr Drug Dosing TNP Estimated GFR (MDRD) > 60.0 ml/min Glucose 112 H (74-106) mg/dL Calcium 8.3 L (8.5-10.1) mg/dL Phosphorus 4.1 (2.6-4.7) mg/dL Magnesium 2.1 (1.8-2.4) mg/dL Total Bilirubin 0.4 (0.2-1.0) mg/dL AST 39 H (15-37) IU/L ALT 59 (14-63) IU/L Alkaline Phosphatase 108 (46-116) U/L Troponin I < 0.050 (0.000-0.056) ng/mL Total Protein 7.5 (6.4-8.2) g/dL Albumin 3.9 (3.4-5.0) g/dL Globulin 3.6 (2.6-4.0) g/dL Albumin/Globulin Ratio 1.1 (0.9-1.6) Lipase 191 (73-393) U/L Urine Color Urine Appearance Urine pH (5.0-8.0) Ur Specific [place] (1.001-1.035) Urine Protein (NEGATIVE) mg/dL Urine Glucose (UA) (NEGATIVE) mg/dL Urine Ketones (NEGATIVE) mg/dL Urine Occult Blood (NEGATIVE) Urine Nitrite (NEGATIVE) Urine Bilirubin (NEGATIVE) Urine Urobilinogen (<2.0) EU/dL Ur Leukocyte Esterase (NEGATIVE) Urine RBC (0-2/HPF) Urine WBC (0-5/HPF) Ur Epithelial Cells (NONE-FEW) Urine Bacteria (NEGATIVE) Urine Mucus (NONE-MOD) Urine Opiates Screen (NEGATIVE) Ur Oxycodone Screen (NEGATIVE) Urine Methadone Screen (NEGATIVE) Ur Barbiturates Screen (NEGATIVE) Ur Phencyclidine Scrn (NEGATIVE) Ur Amphetamine Screen (NEGATIVE) U Methamphetamines Scrn (NEGATIVE) U Benzodiazepines Scrn (NEGATIVE) U Cocaine Metab Screen (NEGATIVE) U Marijuana (THC) Screen (NEGATIVE) Ethyl Alcohol 342 mg/dL 04/06/20 04/06/20 Range/Units 21:07 21:07 WBC (4.0-11.0) K/uL RBC (4.50-5.90) M/uL Hgb (13.0-17.0) g/dL Hct (38.0-50.0) % MCV (80.0-98.0) fL MCH (27.0-32.0) pg MCHC (31.0-37.0) g/dL RDW Std Deviation (28.0-62.0) fl RDW Coeff of Dolly (11.0-15.0) % Plt Count (150-400) K/uL MPV (7.40-12.00) fL Neut % (Auto) (48.0-80.0) % Lymph % (Auto) (16.0-40.0) % [place] % (Auto) (0.0-15.0) % Eos % (Auto) (0.0-7.0) % Baso % (Auto) (0.0-1.5) % Neut # (Auto) (1.4-5.7) K/uL Lymph # (Auto) (0.6-2.4) K/uL [place] # (Auto) (0.0-0.8) K/uL Eos # (Auto) (0.0-0.7) K/uL Baso # (Auto) (0.0-0.1) K/uL Nucleated RBC % /100WBC Nucleated RBCs # K/uL INR Sodium (136-148) mmol/L Potassium (3.5-5.1) mmol/L Chloride (98-107) mmol/L Carbon Dioxide (21.0-32.0) mmol/L BUN (7.0-18.0) mg/dL Creatinine (0.8-1.3) mg/dL Est Cr Clr Drug Dosing Estimated GFR (MDRD) ml/min Glucose (74-106) mg/dL Calcium (8.5-10.1) mg/dL Phosphorus (2.6-4.7) mg/dL Magnesium (1.8-2.4) mg/dL Total Bilirubin (0.2-1.0) mg/dL AST (15-37) IU/L ALT (14-63) IU/L Alkaline Phosphatase (46-116) U/L Troponin I (0.000-0.056) ng/mL Total Protein (6.4-8.2) g/dL Albumin (3.4-5.0) g/dL Globulin (2.6-4.0) g/dL Albumin/Globulin Ratio (0.9-1.6) Lipase (73-393) U/L Urine Color YELLOW Urine Appearance CLEAR Urine pH 6.0 (5.0-8.0) Ur Specific [place] <= 1.005 (1.001-1.035) Urine Protein NEGATIVE (NEGATIVE) mg/dL Urine Glucose (UA) NEGATIVE (NEGATIVE) mg/dL Urine Ketones NEGATIVE (NEGATIVE) mg/dL Urine Occult Blood TRACE-INTACT H (NEGATIVE) Urine Nitrite NEGATIVE (NEGATIVE) Urine Bilirubin NEGATIVE (NEGATIVE) Urine Urobilinogen 0.2 (<2.0) EU/dL Ur Leukocyte Esterase NEGATIVE (NEGATIVE) Urine RBC 0-2 (0-2/HPF) Urine WBC 0-2 (0-5/HPF) Ur Epithelial Cells FEW (NONE-FEW) Urine Bacteria RARE (NEGATIVE) Urine Mucus LIGHT (NONE-MOD) Urine Opiates Screen NEGATIVE (NEGATIVE) Ur Oxycodone Screen NEGATIVE (NEGATIVE) Urine Methadone Screen NEGATIVE (NEGATIVE) Ur Barbiturates Screen NEGATIVE (NEGATIVE) Ur Phencyclidine Scrn NEGATIVE (NEGATIVE) Ur Amphetamine Screen NEGATIVE (NEGATIVE) U Methamphetamines Scrn NEGATIVE (NEGATIVE) U Benzodiazepines Scrn NEGATIVE (NEGATIVE) U Cocaine Metab Screen NEGATIVE (NEGATIVE) U Marijuana (THC) Screen NEGATIVE (NEGATIVE) Ethyl Alcohol mg/dL Meds: Medications Generic Name Dose Route Start Last Admin Trade Name Freq PRN Reason Stop Dose Admin Multivitamins/Minerals 10 ml/ 1,015.2 mls @ 500 mls/hr 04/06/20 21:03 04/06/20 22:08 Thiamine HCl 100 mg/ Folic IV 04/06/20 23:04 500 mls/hr Acid 1 mg/ Magnesium Sulfate 2 ONETIME ONE Administration gm/ Sodium Chloride Sodium Chloride 10 ml 04/06/20 21:03 Saline Flush FLUSH ASDIRECTED PRN Keep Vein Open Sodium Chloride 2.5 ml 04/06/20 21:03 Saline Flush FLUSH ASDIRECTED PRN Keep Vein Open Discontinued Medications Generic Name Dose Route Start Last Admin Trade Name Freq PRN Reason Stop Dose Admin Lactated Ringer's 1,000 mls @ 999 mls/hr 04/06/20 21:03 04/06/20 21:45 Ringers, Lactated IV 04/06/20 22:03 999 mls/hr .BOLUS ONE Administration - Re-Assessments/Exams Free Text/Narrative Re-Assessment/Exam: 04/06/20 22:33 After IV fluids and banana bag and prolonged observation in the ER, he is now clinically sober and is currently stable for discharge. I performed a repeat exam and did not appreciate new abnormal findings. Patient exhibits normal vital signs and has a normal gait on road test. Exhibits a stable gait, I advised the patient to return to the ER for reevaluation if symptoms worsened, including fever, worsening pain, or any other worrisome symptoms. I instructed the patient to follow up with their PCP within 2-3 days. MEDICAL DECISION MAKING: I reviewed the patients past medical records, lab and radiographic findings. I discussed the case with the patient. My differential diagnosis included: Alcohol intoxication, electrolyte abnormality, ICH. CT head was unremarkable. EtOH = 342, he was observed in the ER after IV fluids and banana bag, he sobered up and is clinically sober upon discharge with a normal gait. Departure - Departure Time of Disposition: 22:34 Disposition: Home, Self-Care 01 Condition: Good Clinical Impression: Alcohol intoxication Qualifiers: Complication of substance-induced condition: uncomplicated Qualified Code(s): F10.920 - Alcohol use, unspecified with intoxication, uncomplicated - Discharge Information *PRESCRIPTION DRUG MONITORING PROGRAM REVIEWED*: Not Applicable *COPY OF PRESCRIPTION DRUG MONITORING REPORT IN PATIENT RADHA: Not Applicable Instructions: Alcohol Intoxication, [id number] Forms: ED Department Discharge Additional Instructions: The need for follow-up, as well as the timing and circumstances, are variable depending upon the specifics of your emergency department visit. If you don't have a primary care physician on staff, we will provide you with a referral. We always advise you to contact your personal physician following an emergency department visit to inform them of the circumstance of the visit and for follow-up with them and/or the need for any referrals to a consulting specialist. The emergency department will also refer you to a specialist when appropriate. This referral assures that you have the opportunity for follow-up care with a specialist. All of these measure are taken in an effort to provide you with optimal care, which includes your follow-up. Under all circumstances we always encourage you to contact your private physician who remains a resource for coordinating your care. When calling for follow-up care, please make the office aware that this follow-up is from your recent emergency room visit. If for any reason you are refused follow-up, please contact the [facility] at and asked to speak to the emergency department charge nurse. If you do not have a primary care doctor, please follow up with the clinics below within 3-5 days. [facility] - [facility] [address] [place] [id number] [facility] [address] [place] [id number] Please also follow-up with the clinics below for outpatient detoxification. [facility] [address], [place] [facility] [place] [address], [place] [facility] [place] [address] [place] [address] [facility] Hospitalization Program [address] [address] [facility] [address] [facility] [address] Sepsis Event Note (ED) - Evaluation Sepsis Screening Result: No Definite Risk - Focused Exam Vital Signs: Vital Signs Temp Pulse Resp BP Pulse Ox 04/06/20 21:47 102 H 18 147/110 H 95 04/06/20 20:55 98.9 F 81 21 H 136/79 94 L - My Orders Last 24 Hours: My Active Orders 04/06/20 21:03 Cardiac Monitoring [RC] . DIRECTED Pulse Oximetry [RC] ASDIRECTED MVI, Adult with Vitamin K [Infuvite Adult] 10 ml Thiamine [Vitamin B-1] 100 mg Folic Acid 1 mg Magnesium Sulfate [Magnesium Sulfate 50%] 2 gm Sodium Chloride 0.9% [Normal Saline] 1,000 ml IV ONETIME Sodium Chloride 0.9% [Saline Flush] 10 ml FLUSH ASDIRECTED PRN Sodium Chloride 0.9% [Saline Flush] 2.5 ml FLUSH ASDIRECTED PRN 04/06/20 21:04 EKG Documentation Completion [RC] STAT Saline Lock Insert [OM.PC] Stat - Assessment/Plan Last 24 Hours: My Active Orders 04/06/20 21:03 Cardiac Monitoring [RC] . DIRECTED Pulse Oximetry [RC] ASDIRECTED MVI, Adult with Vitamin K [Infuvite Adult] 10 ml Thiamine [Vitamin B-1] 100 mg Folic Acid 1 mg Magnesium Sulfate [Magnesium Sulfate 50%] 2 gm Sodium Chloride 0.9% [Normal Saline] 1,000 ml IV ONETIME Sodium Chloride 0.9% [Saline Flush] 10 ml FLUSH ASDIRECTED PRN Sodium Chloride 0.9% [Saline Flush] 2.5 ml FLUSH ASDIRECTED PRN 04/06/20 21:04 EKG Documentation Completion [RC] STAT Saline Lock Insert [OM.PC] Stat
[2020-04-06 21:32] LABS: BLOOD UREA NITROGEN,BUN 11 mg/dL (7.0-18.0); CARBON DIOXIDE,CO2 26.4 mmol/L (21.0-32.0); CHLORIDE,CL 106 mmol/L (98-107); GLUCOSE RANDOM 112 mg/dL (74-106); LIPASE 191 U/L (73-393); POTASSIUM,K 3.8 mmol/L (3.5-5.1); SODIUM,NA 144 mmol/L (136-148)
[2020-04-06 21:48] VITALS: BP 147/110; PULSE 102
--- NOTE | 2020-04-06 21:50 | CT ---
INDICATION: Transient alteration of awareness TECHNIQUE: CT Head without i.v. contrast. COMPARISON: 08/26/2016 FINDINGS: CSF space: The ventricles are normal for age. Brain: No evidence of mass, acute infarction or hemorrhage is seen. No mass-effect or midline shift is seen. The brain parenchyma is otherwise normal in appearance with preservation of the almaraz-white matter junction. Calvarium: The visualized paranasal sinuses are well aerated. The mastoid air cells are clear. The visualized orbits are grossly unremarkable. The calvarium is unremarkable in appearance with no fractures identified. IMPRESSION: 1. No evidence of acute infarction, intracranial hemorrhage, or mass-effect seen. Please note that all CT scans at this facility use dose modulation, iterative reconstruction, and/or weight-based dosing when appropriate to reduce radiation dose to as low as reasonably achievable. Dictated by: Leonard Joshua MD @ 04/06/2020 21:49:37 (Electronically Signed)
--- NOTE | 2020-04-06 21:56 | CR ---
INDICATION: Altered mental status TECHNIQUE: Portable upright AP view of the chest COMPARISON: Repeat chest radiograph 01/23/2020 FINDINGS: The lungs are clear. There is no sizable pleural effusion or pneumothorax. The cardiomediastinal silhouette is normal. The visualized osseous structures are unremarkable. IMPRESSION: No acute intrathoracic process. Dictated by Connor Bermeo MD @ Apr 06 2020 9:53PM Signed by Dr. Connor Bermeo @ Apr 06 2020 9:54PM
--- NOTE | 2020-04-06 22:21 | CT ---
INDICATION: Altered mental status, intoxicated. Status post right flank trauma. Patient unable to give history. COMPARISON: CT of the chest, abdomen and pelvis with contrast from 01/20/2020 TECHNIQUE: CT examination of the abdomen and pelvis was performed without contrast enhancement using 3 mm thick axial sections from the lung bases through the pubic symphysis. Oral contrast was not administered. Please note that all CT scans at this facility use dose modulation, iterative reconstruction, and/or weight-based dosing when appropriate to reduce radiation dose to as low as reasonably achievable. FINDINGS: In the abdomen, the unenhanced liver, spleen, and adrenals are normal in appearance. The previously seen mild peripancreatic inflammatory changes have resolved. The pancreas is normal in appearance. The findings are consistent with resolution of previous mild pancreatitis. There is no sign of any pseudocyst or phlegmon. The unenhanced kidneys are normal in appearance. The gallbladder is normal in appearance. The abdominal aorta is normal in caliber with no sign of dilatation. There is no sign of retroperitoneal mass or adenopathy. The stomach, loops of small bowel, and colon in the abdomen are normal in appearance. There is a stable tiny fat containing periumbilical hernia. In the pelvis, the appendix is normal in appearance with no sign of inflammatory process. The loops of small bowel and colon in the pelvis are normal in appearance. The prostate is normal in appearance. The urinary bladder is normal in appearance. There is no sign of pelvic or inguinal mass or adenopathy. Again seen are small bilateral fat containing direct inguinal hernias. There is no sign of free air or free fluid in the abdomen or pelvis. The lung bases are clear. Again seen is prominence L1-2 and moderate L2-3 disc degenerative disease. Again seen is moderate right lateral L1-2 disc bulging and posterior osteophytic ridging which could result in mild spinal stenosis. The rest of the osseous structures are normal in appearance. There is no sign of fracture of the pelvis, hips, lumbar spine, or inferior ribs. IMPRESSION: No sign of traumatic injury to the abdomen or pelvis. CT of the abdomen shows resolution of previously seen pancreatitis with no sign of acute pancreatitis, pseudocyst, or phlegmon. CT of the pelvis shows stable small bilateral fat containing direct inguinal hernias. Please note that all CT scans at this facility use dose modulation, iterative reconstruction, and/or weight-based dosing when appropriate to reduce radiation dose to as low as reasonably achievable. Dictated by Donald Mendez MD @ Apr 06 2020 10:11PM Signed by Dr. Donald Mendez @ Apr 06 2020 10:20PM
== END 2020-04-06 22:42 | disposition home or self-care (01) ==
LOC: MW.ED 20:51
DX: F10.120 Alcohol abuse with intoxication, uncomplicated (principal); Y90.8 Blood alcohol level of 240 mg/100 ml or more
CPT/HCPCS: 36415; 70450; 71045; 74176; 80053; 80305; 80307; 81001; 83690; 83735; 84100; 84484; 85025; 85610; 93005; 96365; 99285; J3411; J3475; J7030; J7120; 93010; 99283

== ENCOUNTER 2023-02-14 16:40 | Emergency (ER) | payer SELFPAY ==
[2023-02-14 17:18] LABS: BASOPHILS ABSOLUTE AUTO 0.05 K/uL (0.00-0.20); BASOPHILS PERCENT AUTO 0.7 % (0.0-1.0); EOSINOPHILS ABSOLUTE AUTO 0.15 K/uL (0.00-0.45); EOSINOPHILS PERCENT AUTO 2.1 % (0.0-6.0); HEMATOCRIT 43.7 % (42.0-52.0); HEMOGLOBIN 15.8 g/dL (14.0-18.0); LYMPHOCYTES ABSOLUTE AUTO 1.71 K/uL (1.00-4.80); LYMPHOCYTES PERCENT AUTO 23.9 % (24.0-44.0); MEAN CORPUSCULAR HGB CONC 36.2 g/dL (32.0-36.0); MEAN CORPUSCULAR VOLUME 88.6 fL (83.0-99.0); MONOCYTES ABSOLUTE AUTO 0.72 K/uL (0.00-0.80); MONOCYTES PERCENT AUTO 10.1 % (0.0-8.0); NEUTROPHILS ABSOLUTE AUTO 4.5 K/uL (1.8-7.7); NEUTROPHILS PERCENT AUTO 63.1 % (41.0-71.0); PLATELET COUNT,PLT 351 K/uL (150-400); RED BLOOD CELL COUNT 4.93 M/uL (4.52-5.90); WHITE BLOOD CELL COUNT,WBC 7.14 K/uL (3.9-11.3)
[2023-02-14 17:31] LABS: ALBUMIN 3.5 g/dL (3.4-5.0); BILIRUBIN TOTAL 0.3 mg/dL (0.2-1.0); CALCIUM 9.2 mg/dL (8.5-10.1); CARBON DIOXIDE,CO2 24.7 mmol/L (21.0-32.0); CREATININE 0.8 mg/dL (0.8-1.3); EST CRCL DRUG DOSING (CG) 105.89 mL/min; POTASSIUM,K 3.7 mmol/L (3.5-5.1); PROTEIN TOTAL,TP 6.9 g/dL (6.4-8.2)
[2023-02-14 17:32] LABS: AMPHETAMINES SCREEN, URINE NEGATIVE (CUTOFF=500); BARBITURATE SCREEN,URINE NEGATIVE (CUTOFF=200); BENZODIAZEPINES SCREEN,URINE NEGATIVE (CUTOFF=150); BUPRENORPHINE SCREEN,URINE NEGATIVE (CUTOFF=10); METHADONE SCREEN, URINE NEGATIVE (CUTOFF=200); METHAMPHETAMINES SCREEN, URINE NEGATIVE (CUTOFF=500); OXYCODONE SCREEN,URINE NEGATIVE (CUT0FF=100); PCP SCREEN,URINE NEGATIVE (CUTOFF=25); PROPOXYPHENE SCREEN,URINE NEGATIVE (CUTOFF=300); THC SCREEN,URINE 20 NG/ML PRESUMPTIVE POSITIVE (CUTOFF=50)
[2023-02-14 18:14] VITALS: BP 119/79; PULSE 70
[2023-02-14] MEDS ORDERED: Acetaminophen/HYDROcodone 325-5 MG Tab PO ONE (18:59)
[2023-02-14] MEDS ORDERED: Iopamidol 755 MG/ML 500 ML Multipack Bottle IVPUSH ONE (19:18)
== END 2023-02-14 19:13 | disposition left against medical advice (07) ==
LOC: MW.ED 16:40
DX: M25.531 Pain in right wrist (principal); M25.532 Pain in left wrist; M25.561 Pain in right knee; M25.562 Pain in left knee; R07.9 Chest pain, unspecified; K08.89 Other specified disorders of teeth and supporting structures; F10.99 Alcohol use, unspecified with unspecified alcohol-induced disorder; Y90.6 Blood alcohol level of 120-199 mg/100 ml; Z88.5 Allergy status to narcotic agent
CPT/HCPCS: 36415; 71045; 71275; 80053; 80305; 80307; 83690; 84484; 85025; 85379; 93005; 99285; Q9967; 93010; 99283

== ENCOUNTER 2023-02-17 23:53 | Emergency (ER) | payer SELFPAY ==
[2023-02-18] MEDS ORDERED: Acetaminophen 325 MG Tab PO ONE (00:12)
[2023-02-18] MEDS ORDERED: Ibuprofen 400 MG Tab PO ONE (00:12)
[2023-02-18 00:29] LABS: BASOPHILS ABSOLUTE AUTO 0.07 K/uL (0.00-0.20); BASOPHILS PERCENT AUTO 0.7 % (0.0-1.0); EOSINOPHILS ABSOLUTE AUTO 0.16 K/uL (0.00-0.45); EOSINOPHILS PERCENT AUTO 1.6 % (0.0-6.0); HEMATOCRIT 43.4 % (42.0-52.0); HEMOGLOBIN 15.8 g/dL (14.0-18.0); IMMATURE GRAN ABSOLUTE AUTO 0.02 K/uL (0.00-0.05); IMMATURE GRAN PERCENT AUTO 0.2 % (0.0-0.4); LYMPHOCYTES ABSOLUTE AUTO 2.55 K/uL (1.00-4.80); LYMPHOCYTES PERCENT AUTO 25.3 % (24.0-44.0); MEAN CORPUSCULAR HEMOGLOBIN 32.4 pg (28.0-32.0); MEAN CORPUSCULAR HGB CONC 36.4 g/dL (32.0-36.0); MEAN CORPUSCULAR VOLUME 88.9 fL (83.0-99.0); MEAN PLATELET VOLUME 8.5 fL (9.4-12.4); MONOCYTES ABSOLUTE AUTO 0.99 K/uL (0.00-0.80); MONOCYTES PERCENT AUTO 9.8 % (0.0-8.0); NEUTROPHILS ABSOLUTE AUTO 6.3 K/uL (1.8-7.7); NEUTROPHILS PERCENT AUTO 62.4 % (41.0-71.0); PLATELET COUNT,PLT 334 K/uL (150-400); RED BLOOD CELL COUNT 4.88 M/uL (4.52-5.90); WHITE BLOOD CELL COUNT,WBC 10.08 K/uL (3.9-11.3)
[2023-02-18 00:43] LABS: BILIRUBIN,URINE NEGATIVE (NEGATIVE); COLOR,URINE YELLOW; GLUCOSE,URINE NEGATIVE (NEGATIVE); KETONES,URINE TRACE mg/dL (NEGATIVE); LEUKOCYTE ESTERASE,URINE NEGATIVE (NEGATIVE); NITRITE,URINE NEGATIVE (NEGATIVE); OCCULT BLOOD,URINE TRACE-INTACT (NEGATIVE); PH,URINE 5.5 (5.0-8.0); PROTEIN,URINE NEGATIVE (NEGATIVE); UROBILINOGEN,URINE 0.2 EU/dL (<2.0)
[2023-02-18 00:51] LABS: APPEARANCE,URINE HAZY
[2023-02-18 00:54] LABS: AMPHETAMINES SCREEN, URINE NEGATIVE (CUTOFF=500); BARBITURATE SCREEN,URINE NEGATIVE (CUTOFF=200); BENZODIAZEPINES SCREEN,URINE NEGATIVE (CUTOFF=150); BUPRENORPHINE SCREEN,URINE NEGATIVE (CUTOFF=10); METHADONE SCREEN, URINE NEGATIVE (CUTOFF=200); METHAMPHETAMINES SCREEN, URINE NEGATIVE (CUTOFF=500); OXYCODONE SCREEN,URINE NEGATIVE (CUT0FF=100); PCP SCREEN,URINE NEGATIVE (CUTOFF=25); PROPOXYPHENE SCREEN,URINE NEGATIVE (CUTOFF=300); THC SCREEN,URINE 20 NG/ML PRESUMPTIVE POSITIVE (CUTOFF=50)
[2023-02-18 01:01] LABS: ACETAMINOPHEN <2.0 ug/mL; ALANINE AMINOTRANSFERASE,ALT 39 IU/L (14-63); ALBUMIN 3.4 g/dL (3.4-5.0); ALKALINE PHOSPHATASE 80 U/L (46-116); ASPARTATE AMNIOTRANSFERASE,AST 43 IU/L (15-37); BILIRUBIN TOTAL 0.3 mg/dL (0.2-1.0); BLOOD UREA NITROGEN,BUN 13 mg/dL (7.0-18.0); CALCIUM 8.5 mg/dL (8.5-10.1); CARBON DIOXIDE,CO2 25.5 mmol/L (21.0-32.0); CHLORIDE,CL 103 mmol/L (98-107); CREATININE 0.8 mg/dL (0.8-1.3); EST CRCL DRUG DOSING (CG) 105.89 mL/min; ETHANOL BLOOD MEDICAL 120 mg/dL; GLUCOSE RANDOM 98 mg/dL (74-106); POTASSIUM,K 3.5 mmol/L (3.5-5.1); PROTEIN TOTAL,TP 6.7 g/dL (6.4-8.2); SALICYLATE 0.9 mg/dL (0.0-20.0); SODIUM,NA 137 mmol/L (136-148); TSH ULTRASENSITIVE 2.37 uIU/mL (0.36-3.74)
[2023-02-18 01:04] LABS: BACTERIA,URINE FEW (NEGATIVE); MUCUS,URINE LIGHT (NONE-MOD); SQUAMOUS EPITHELIAL CELLS,UR NOT SEEN; WBC,URINE 0-2 (0-5/HPF)
[2023-02-18 01:08] LABS: ESTIMATED GFR 102 mL/min (>60)
[2023-02-18] MEDS ORDERED: Pantoprazole 40 MG Tab.CR PO STA (02:30)
[2023-02-18] MEDS ORDERED: Aluminum Hydroxide/Magnesium Hydroxide/Simethicone XS Susp 30 ML Cup PO ONE (02:30)
[2023-02-18] MEDS ORDERED: Famotidine 20 MG Tab PO ONE (02:30)
[2023-02-18] MEDS ORDERED: oxyCODONE 5 MG Tab PO ONE (08:22)
[2023-02-18 09:54] VITALS: BP 104/60; PULSE 65
== END 2023-02-18 10:19 | disposition home or self-care (01) ==
LOC: MW.ED 23:53
DX: R45.851 Suicidal ideations (principal); F11.99 Opioid use, unspecified with unspecified opioid-induced disorder; G89.29 Other chronic pain; K21.9 Gastro-esophageal reflux disease without esophagitis; Z88.5 Allergy status to narcotic agent; Z79.899 Other long term (current) drug therapy; Z20.822 Contact with and (suspected) exposure to COVID-19
CPT/HCPCS: 36415; 80053; 80143; 80179; 80305; 80307; 81001; 84443; 85025; 87635; 93005; 99285; A9270; 93010; 99284; U0002

== ENCOUNTER 2023-02-19 13:26 | Emergency (ER) | payer SELFPAY ==
[2023-02-19] MEDS ORDERED: oxyCODONE 5 MG Tab PO ONE (13:46)
[2023-02-19 14:07] VITALS: BP 134/93; PULSE 80
== END 2023-02-19 14:06 | disposition home or self-care (01) ==
LOC: MW.ED 13:26
DX: M13.832 Other specified arthritis, left wrist (principal); M13.831 Other specified arthritis, right wrist; K21.9 Gastro-esophageal reflux disease without esophagitis; Z88.5 Allergy status to narcotic agent; Z79.899 Other long term (current) drug therapy
CPT/HCPCS: 99283; A9270

== ENCOUNTER 2023-03-09 17:34 | Emergency (ER) | payer MEDICAID ==
[2023-03-09 18:05] LABS: BASOPHILS ABSOLUTE AUTO 0.05 K/uL (0.00-0.20); BASOPHILS PERCENT AUTO 0.7 % (0.0-1.0); EOSINOPHILS ABSOLUTE AUTO 0.11 K/uL (0.00-0.45); EOSINOPHILS PERCENT AUTO 1.5 % (0.0-6.0); HEMATOCRIT 45.4 % (42.0-52.0); HEMOGLOBIN 16.5 g/dL (14.0-18.0); IMMATURE GRAN ABSOLUTE AUTO 0.01 K/uL (0.00-0.05); IMMATURE GRAN PERCENT AUTO 0.1 % (0.0-0.4); LYMPHOCYTES ABSOLUTE AUTO 1.74 K/uL (1.00-4.80); LYMPHOCYTES PERCENT AUTO 24.2 % (24.0-44.0); MEAN CORPUSCULAR HEMOGLOBIN 32.8 pg (28.0-32.0); MEAN CORPUSCULAR HGB CONC 36.3 g/dL (32.0-36.0); MEAN CORPUSCULAR VOLUME 90.3 fL (83.0-99.0); MEAN PLATELET VOLUME 8.3 fL (9.4-12.4); MONOCYTES ABSOLUTE AUTO 0.53 K/uL (0.00-0.80); MONOCYTES PERCENT AUTO 7.4 % (0.0-8.0); NEUTROPHILS ABSOLUTE AUTO 4.76 K/uL (1.80-7.70); NEUTROPHILS PERCENT AUTO 66.1 % (41.0-71.0); PLATELET COUNT,PLT 412 K/uL (150-400); RED BLOOD CELL COUNT 5.03 M/uL (4.52-5.90)
[2023-03-09] MEDS ORDERED: Nicotine 21 MG/24 Hr Patch TRDERM ONE (18:07)
[2023-03-09 18:19] LABS: APPEARANCE,URINE CLEAR; BILIRUBIN,URINE NEGATIVE (NEGATIVE); COLOR,URINE YELLOW; GLUCOSE,URINE NEGATIVE (NEGATIVE); KETONES,URINE NEGATIVE (NEGATIVE); LEUKOCYTE ESTERASE,URINE NEGATIVE (NEGATIVE); NITRITE,URINE POSITIVE (NEGATIVE); OCCULT BLOOD,URINE NEGATIVE (NEGATIVE); PROTEIN,URINE NEGATIVE (NEGATIVE); UROBILINOGEN,URINE 0.2 EU/dL (<2.0)
[2023-03-09 18:26] LABS: AMPHETAMINES SCREEN, URINE PRESUMPTIVE POSITIVE (CUTOFF=500); BARBITURATE SCREEN,URINE NEGATIVE (CUTOFF=200); BENZODIAZEPINES SCREEN,URINE NEGATIVE (CUTOFF=150); BUPRENORPHINE SCREEN,URINE NEGATIVE (CUTOFF=10); METHADONE SCREEN, URINE NEGATIVE (CUTOFF=200); METHAMPHETAMINES SCREEN, URINE NEGATIVE (CUTOFF=500); OXYCODONE SCREEN,URINE NEGATIVE (CUT0FF=100); PCP SCREEN,URINE NEGATIVE (CUTOFF=25); PROPOXYPHENE SCREEN,URINE NEGATIVE (CUTOFF=300); THC SCREEN,URINE 20 NG/ML PRESUMPTIVE POSITIVE (CUTOFF=50)
[2023-03-09 18:39] LABS: A/G RATIO 1.1 (0.9-1.6); ACETAMINOPHEN <2.0 ug/mL; ALANINE AMINOTRANSFERASE,ALT 33 IU/L (14-63); ALBUMIN 3.9 g/dL (3.4-5.0); ALKALINE PHOSPHATASE 94 U/L (46-116); ASPARTATE AMNIOTRANSFERASE,AST 20 IU/L (15-37); BILIRUBIN TOTAL 0.2 mg/dL (0.2-1.0); BLOOD UREA NITROGEN,BUN 13 mg/dL (7.0-18.0); CALCIUM 8.8 mg/dL (8.5-10.1); CARBON DIOXIDE,CO2 24.6 mmol/L (21.0-32.0); CHLORIDE,CL 107 mmol/L (98-107); CREATININE 0.9 mg/dL (0.8-1.3); EST CRCL DRUG DOSING (CG) 94.13 mL/min; ESTIMATED GFR 98 mL/min (>60); ETHANOL BLOOD MEDICAL 228 mg/dL; GLUCOSE RANDOM 87 mg/dL (74-106); MAGNESIUM 2.1 mg/dL (1.8-2.4); POTASSIUM,K 3.7 mmol/L (3.5-5.1); PROTEIN TOTAL,TP 7.5 g/dL (6.4-8.2); SALICYLATE 1.2 mg/dL (0.0-20.0); SODIUM,NA 145 mmol/L (136-148); TSH ULTRASENSITIVE 0.97 uIU/mL (0.36-3.74)
[2023-03-09 18:40] LABS: BACTERIA,URINE RARE (NEGATIVE); EPITHELIAL CELLS,URINE NOT SEEN (NONE-FEW); RBC,URINE NONE SEEN (0-2/HPF); WBC,URINE 0-1 (0-5/HPF)
[2023-03-09 18:57] LABS: CORONAVIRUS COVID-19 NAA NEGATIVE (NEGATIVE); INFLUENZA A NAA NEGATIVE (NEGATIVE); INFLUENZA B NAA NEGATIVE (NEGATIVE)
[2023-03-09] MEDS ORDERED: Benzocaine 20% Topical Spray UD MUCMEM ONE (22:44)
[2023-03-09] MEDS ORDERED: Lidocaine 2% Viscous Solution 15 ML UD PO STA (22:45)
[2023-03-10] MEDS ORDERED: Omeprazole 20 MG Cap.CR PO ONE (00:51)
[2023-03-10] MEDS ORDERED: Melatonin 3 MG Tab PO PRN (00:52)
[2023-03-10 09:00] VITALS: BP 133/61; PULSE 68
== END 2023-03-10 09:28 ==
LOC: MW.ED 17:34
DX: F19.10 Other psychoactive substance abuse, uncomplicated (principal); R45.851 Suicidal ideations; F10.920 Alcohol use, unspecified with intoxication, uncomplicated; F10.129 Alcohol abuse with intoxication, unspecified; Z88.5 Allergy status to narcotic agent; Y90.0 Blood alcohol level of less than 20 mg/100 ml; Z20.822 Contact with and (suspected) exposure to COVID-19
CPT/HCPCS: 0240U; 36415; 80053; 80143; 80179; 80305; 80307; 81001; 83735; 84443; 85025; 87086; 99285; A9270; 99283